=== PATIENT | male | born 1975 | race Hispanic/Latino ===

== ENCOUNTER → 2025-01-08 | Day surgery (SDC) | payer BC ==
[~2025-01-08] MED LIST: HYOSCYAMINE SULFATE 0.5 MG/ML INJ ONE; LIDOCAINE HCL 2% LOCAL INJ 5 ML SDV VIAL INJ ONE; MIDAZOLAM HCL 2 MG/2 ML VIAL ONE; PROPOFOL IV EMULSION 10 MG/ML 20 ML VIAL ONE
[2025-01-08] MEDS: LACTATED RINGER'S 1,000 ML ONE (11:27)
[2025-01-08 14:15] VITALS: BP 120/78; PULSE 78; RESP 17; TEMP 97.8; O2SAT 98
== END | disposition home or self-care (01) ==
LOC: OR 11:00
PROVIDERS: ATTEND Internal Medicine Gastroenterology
DX: Z12.11 Encounter for screening for malignant neoplasm of colon (principal); D12.2 Benign neoplasm of ascending colon; D12.8 Benign neoplasm of rectum; K57.30 Diverticulosis of large intestine without perforation or abscess without bleeding; K62.89 Other specified diseases of anus and rectum; K64.8 Other hemorrhoids; R19.8 Other specified symptoms and signs involving the digestive system and abdomen; K62.5 Hemorrhage of anus and rectum; K21.9 Gastro-esophageal reflux disease without esophagitis; R63.4 Abnormal weight loss; Z21 Asymptomatic human immunodeficiency virus [HIV] infection status; I10 Essential (primary) hypertension; F41.9 Anxiety disorder, unspecified; F17.210 Nicotine dependence, cigarettes, uncomplicated; F17.290 Nicotine dependence, other tobacco product, uncomplicated; Z01.810 Encounter for preprocedural cardiovascular examination; Z79.1 Long term (current) use of non-steroidal anti-inflammatories (NSAID); Z87.01 Personal history of pneumonia (recurrent)
CPT/HCPCS: 45380; 45384; 45385; 93005; J1980; J2003; J2250; J2704; J7121; 45378